=== PATIENT | female | born 1985 | race Caucasian/White ===

== ENCOUNTER 2018-12-24 08:47 | Observation (INO) | payer MEDICAID ==
[2018-12-24] VITALS (11 sets, daily range): BP systolic 102–130; BP diastolic 56–86; PULSE 85–94; RESP 16–24; Ht 162.6 cm; Wt 112.3 kg
[~2018-12-24] VITALS: Ht 162.6 cm; Wt 112.3 kg
[2018-12-24] MEDS ORDERED: POLY10DR19 RIGHT EYE (09:47)
[2018-12-24] MEDS ORDERED: PSEU60TA2 PO (11:56)
[2018-12-24] MEDS ORDERED: ACETAMINOPHEN 325 MG TAB PO PRN (12:00)
[2018-12-24] MEDS ORDERED: ONDANSETRON 4 MG INJ IV PRN ×2 (12:00→18:00)
--- NOTE | 2018-12-24 12:00 | QN ---
Documentation Comment Patient seen and worked up by Opal Ball NP. Opal spoke with Dr. Joseph the patient's OB doctor who requested the patient be admitted. I have placed the admission under Dr. Joseph to a medical surgical bed for observation. The patient will likely need D&C. LACEY CHAUDHRY MD December 24, 2018 12:00
--- NOTE | 2018-12-24 12:07 | ERD ---
ER Documentation Chief Complaint Chief Complaint vag bleed x 3 days , 11 weeks preg , lmp 10/07/18 , rt eye discharge HPI This is a 33-year-old female patient who presents the emergency room with complaint of vaginal bleeding x3 days although no bleeding today. Patient states she is currently 11 weeks with LMP October 07, 2018, estimated due date 07/13/2019. G5 A2 P2. Patient states she has had some bright red and some brown spotting. Bilateral pelvic cramping with sharp suprapubic pain. No nausea vomiting, diarrhea yesterday. Patient is alert, appropriate, NAD. OB: Dr. Damon Patient also complaining of right eye redness, pain, increased tearing. No visual disturbance. Pain travels from right eye into right ear. ROS All systems reviewed and are negative except as per history of present illness. Medications Home Meds Active Scripts Pseudoephedrine Hcl* (Pseudoephedrine Hcl*) 60 Mg Tablet, 60 MG PO Q6 PRN for CONGESTION for 5 Days, #10 TAB Prov:CARLA ESTRADA NP 12/24/18 Polymyxin B Sulfate-TMP* (Polymyxin B-TMP Eye Drops*) 10 Ml Drops, 1 DROP RIGHT EYE QID for 7 Days, EA Prov:CARLA ESTRADA CARE PARTNER 12/24/18 Allergies Allergies: Uncoded Allergies: penicillin (Allergy, Unknown, 12/24/18) PMhx/Soc Medical and Surgical Hx: pt denies Medical Hx Hx Alcohol Use: No Hx Substance Use: No Hx Tobacco Use: No FmHx Family History: No diabetes, No coronary disease, No other Physical Exam Vitals Vital Signs Date Temp Pulse Resp B/P (MAP) Pulse Ox O2 O2 Flow FiO2 Time Delivery Rate 12/24/18 98.1 76 18 115/61 98 08:50 (79) Physical Exam Const: No acute distress Head: Atraumatic Eyes: Normal Conjunctiva, PERRL, EOMI ENT: Normal External Ears, Right TM with effusion, Left TM clear, no nasal discharge, pharynx pink, moist, no lesions, no exudate, no petechiae. Neck: Full range of motion. No meningismus. No lymphadenopathy Resp: Clear to auscultation bilaterally, no wheezing, no rales Cardio: Regular rate and rhythm, no murmurs Abd: Soft, non tender, non distended. Normal bowel sounds, no hepatosplenomegaly. Tenderness to palpation at RLQ/LLQ/suprapubic region. Skin: No petechiae or rashes, warm, dry, skin color normal for ethnicity Back: No midline or flank tenderness Ext: No cyanosis, or edema Neur: Awake and alert Psych: Normal Mood and Affect Result Diagram: 12/24/18 0958 Results 24 hrs Laboratory Tests Test 12/24/18 09:58 White Blood Count 6.6 10^3/ul Red Blood Count 4.98 10^6/ul Hemoglobin 13.4 g/dl Hematocrit 41.3 % Mean Corpuscular Volume 82.9 fl Mean Corpuscular Hemoglobin 26.9 pg Mean Corpuscular Hemoglobin Concent 32.4 g/dl Red Cell Distribution Width 13.9 % Platelet Count 273 10^3/UL Mean Platelet Volume 9.0 fl Immature Granulocytes % 0.300 % Neutrophils % 56.8 % Lymphocytes % 34.1 % Monocytes % 3.5 % Eosinophils % 4.7 % Basophils % 0.6 % Nucleated Red Blood Cells % 0.0 /100WBC Immature Granulocytes # 0.020 10^3/ul Neutrophils # 3.7 10^3/ul Lymphocytes # 2.2 10^3/ul Monocytes # 0.2 10^3/ul Eosinophils # 0.3 10^3/ul Basophils # 0.0 10^3/ul Nucleated Red Blood Cells # 0.0 10^3/ul Urine Color YELLOW Urine Clarity CLOUDY Urine pH 6.0 Urine Specific [place] 1.023 Urine Ketones TRACE mg/dL Urine Nitrite NEGATIVE mg/dL Urine Bilirubin NEGATIVE mg/dL Urine Urobilinogen NEGATIVE mg/dL Urine Leukocyte Esterase NEGATIVE [place]y/ul Urine Microscopic RBC 2 /HPF Urine Microscopic WBC 3 /HPF Urine Squamous Epithelial Cells MANY /HPF Urine Bacteria FEW /HPF Urine Mucus MANY /HPF Urine Hemoglobin NEGATIVE mg/dL Urine Glucose NEGATIVE mg/dL Urine Total Protein NEGATIVE mg/dl Beta HCG, Quantitative 9337.4 mIU/ml Current Medications Medications Dose Sig/Cuco Start Time Status Last (Trade) Ordered Route PRN Stop Time Admin Dose Reason Admin Ondansetron 4 mg BRIDGE ORDER 12/24/18 HCl (Zofran PRN IV 12:00 Inj) NAUSEA/VOMITI 12/25/18 11:59 NG 650 mg ER BRIDGE 12/24/18 Acetaminophen PRN PO 12:00 (Tylenol .MILD PAIN 12/25/18 11:59 Tab) 1-3 OR TEMP Procedures/MDM This is a 33-year-old female patient who presents emergency room with complaint of vaginal bleeding at 11 weeks gestation. ED COURSE: The patient was stable throughout ED course. I kept the patient family informed of laboratory and diagnostic imaging results throughout the ED course. Patient denies any active bleeding at this time. DIAGNOSTIC IMAGING: Read by radiologist. IMPRESSION: Single intrauterine at 9 weeks and 3 days. No heart tones noted, consistent with demise. MDM: Dr. Damon notified of demise. Ordered to admit patient for suction d/c. Dr. Jin notified who will process admission. Patient notified of results and plan for d/c, patient verbalized understanding and was not visibly upset at diagnosis. Pt states, "these things happen." Patient moved to main ER for IV placement and admission. Patient requesting prescription for eye infection and ear congestions. Prescription for Polytrim and Sudafed provided. Instructed patient not to take S udafed if BP is elevated or d/c procedure is not performed. DISPOSITION: The patient has been discharge home to follow-up with community physician. Departure Diagnosis: Primary Impression: demise, less than 22 weeks CARLA ESTRADA NP December 24, 2018 12:07
--- NOTE | 2018-12-24 16:26 | PREAC ---
Date/Time of Note Date/Time of Note DATE: 12/24/18 TIME: 16:22 Anesthesia Eval and Record Evaluation Time Pre-Procedure Interview DATE: 12/24/18 TIME: 16:22 Age 33 Sex female NPO: 8 hrs Preoperative diagnosis missed Planned procedure D&C Past Medical History Past Medical History: Includes GI: Morbid obesity Surgery & Anesthesia Issues No known issue Meds Anticoagulation: No Beta Ankit within 24 hr: No Reason Beta Ankit not given: Pt. not on B-Ankit Active Scripts Pseudoephedrine Hcl* (Pseudoephedrine Hcl*) 60 Mg Tablet, 60 MG PO Q6 PRN for CONGESTION for 5 Days, #10 TAB Prov:CARLA ESTRADA INVESTIGATION MANAGER 12/24/18 Polymyxin B Sulfate-TMP* (Polymyxin B-TMP Eye Drops*) 10 Ml Drops, 1 DROP RIGHT EYE QID for 7 Days, EA Prov:CARLA ESTRADA INVESTIGATION MANAGER 12/24/18 Current Medications Ondansetron HCl (Zofran Inj) 4 mg BRIDGE ORDER PRN IV NAUSEA/VOMITING; Start 12/24/18 at 12:00; Stop 12/25/18 at 11:59 Acetaminophen (Tylenol Tab) 650 mg ER BRIDGE PRN PO .MILD PAIN 1-3 OR TEMP; Start 12/24/18 at 12:00; Stop 12/25/18 at 11:59 Meds reviewed: Yes Allergies Uncoded Allergies: penicillin (Allergy, Unknown, 12/24/18) Allergies Reviewed: Yes Labs/Studies Labs Reviewed: Reviewed by anesthesiologist Result Diagram: 12/24/18 0958 Laboratory Tests 12/24/18 09:58 Blood Bank Test 12/24/18 09:58 Blood Type B POSITIVE test: Positive Pre-procedure Exam Last vitals Vital Signs Date Temp Pulse Resp B/P (MAP) Pulse Ox O2 O2 Flow FiO2 Time Delivery Rate 12/24/18 98.1 92 16 118/58 100 Room Air 15:15 (78) Airway: Adequate mouth opening, Adequate thyromental dist Mallampati: Mallampati II Teeth: Normal Lung: Normal Heart: Normal ASA Physical Status ASA physical status: 2 Emergency: None Pre-operative Attestations Prior to commencing anesthesia and surgery, the patient was re-evaluated, there was verification of: *The patient's identity *The results of appropriate recent lab work and preoperative vital signs *The above evaluation not changing prior to induction *Anesthetic plan, risk benefits, alternative and complications discussed with pa tient/family; questions answered; patient/family understands, accepts and wishes to proceed. VIN KRISHNA DO December 24, 2018 16:26
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
[2018-12-24] MEDS ORDERED: MIDAZOLAM 1 MG/ML 2 ML INJ ONE (16:40)
[2018-12-24] MEDS ORDERED: FENTAnyl 50 MCG/ML VIAL ONE (16:40)
[2018-12-24] MEDS ORDERED: CLINDAMYCIN 900 MG/D5W (PMX) 50 ML IVPB ONE (17:00)
[2018-12-24] MEDS ORDERED: MISOPROSTOL 100 MCG TAB PR SCH (17:30)
[2018-12-24] MEDS ORDERED: MISOPROSTOL 200 MCG TAB PR SCH (17:30)
[2018-12-24] MEDS ORDERED: HYDROmorphONE 1 MG/5 ML IV SYRINGE IV ONE (17:53)
[2018-12-24] MEDS ORDERED: HYDROCODONE/APAP (5/325) TAB PO PRN (18:00)
[2018-12-24] MEDS ORDERED: HYDROmorphONE 1 MG/5 ML IV SYRINGE IV PRN ×3 (18:00)
--- NOTE | 2018-12-24 18:03 | PAC ---
Date/Time of Note Date/Time of Note DATE: 12/24/18 TIME: 18:03 Post-Anesthesia Notes Post-Anesthesia Note Last documented vital signs Vital Signs Date Temp Pulse Resp B/P (MAP) Pulse Ox O2 O2 Flow FiO2 Time Delivery Rate 12/24/18 98.1 92 16 118/58 100 Room Air 15:15 (78) Activity: WNL Respiratory function: WNL Cardiovascular function: WNL Mental status: Baseline Pain reasonably controlled: Yes Hydration appropriate: Yes Nausea/Vomiting absent: Yes VIN KRISHNA DO December 24, 2018 18:03
--- NOTE | 2018-12-24 18:06 | OPR ---
Date/Time of Note Date/Time of Note DATE: 12/24/18 TIME: 17:55 Operative Report Procedure Date: December 24, 2018 Preoperative Diagnosis 33 years old -0-2-2 with missed . Postoperative Diagnosis 33 years old -0-2-2 with missed . Operation/Procedure Performed Dilation with suction curettage Surgeon see signature line Staff Readiness Officer None Anesthesia Type: general Anesthesiologist: VIN KRISHNA DO Estimated Blood Loss: 150 - 200 ml's Transfusion none Specimen Productive of conception Grafts/Implants none Complications none Pt Condition Post Procedure: stable Disposition: PACU Procedure Description FINDINGS: Exam under anesthesia: External genitalia normal. Vagina with moderate bleeding. Cervix: No lesion, fingertip is open. Uterus: 14 weeks, mobile, anteverted. Adnexa: No palpable mass, bilateral INDICATION AND HISTORY: 33 years old -0-2-2 with missed . Treatment options including medical treatment with Cytotec and dilation with suction curettage were discussed in detail with the patient and her partner. She would like to have dilation and suction curettage. Risks including but not limited to bleeding, infection, uterine perforation, injury to other organs, bowel, bladder, ureter, vessel and nerves if uterine perforation occurs, blood transfusion, blood transfusion transfusion-related infection, scar formation, risk of anesthesia and other indicated surgery were discussed in detail with the patient. She expressed understanding. All of the questions were answered. She signed the informed consent. PROCEDURE IN DETAIL: The patient was identified and the procedure verified. She was given general anesthesia without difficulty and placed in a modified dorsal lithotomy. The patient was examined under general anesthesia as noted above. The patient was then prepped and draped in the normal sterile fashion. The bladder was drained by insertion of straight catheter. Then, a weighted speculum was used to visualize the cervix, which was grasped on anterior lip with a single tooth tenaculum. The cervix was already fingertip dilated. The cervix was dilated more to #10. Depth of uterus was 14 cm. Then a #9 suction curettage was introduced into the uterine cavity. Suction curettage was performed in a 360- degree fashion until no further tissue was obtained. There was approximately 150 mL bleeding. Then a sharp curette was gently introduced into the uterine cavity until a gritty texture was felt in all 4 quadrants. Again, the suction curettage was introduced to remove the remaining clot and debris, no further tissue was obtained. The specimen was sent to pathology. Tenaculum was removed. There was no bleeding from tenaculum site. The speculum was removed. The patient tolerated the procedure well. She was extubated in the operating room and transferred to the recovery room in stable condition. MERE MESA December 24, 2018 18:06
[2018-12-24] MEDS: IBUPROFEN 800 MG TAB PO SCH (20:55)
[2018-12-25 02:00] VITALS: BP 96/63; PULSE 75; RESP 17
[2018-12-25 08:00] VITALS: BP 106/61; PULSE 83; RESP 20
[2018-12-25] MEDS: IBUPROFEN 800 MG TAB PO SCH ×2 (09:00→13:05)
[2018-12-25] MEDS ORDERED: DEXTROSE 5%-LR 500 ML IV SCH (13:30)
[2018-12-25 14:00] VITALS: BP 110/62; PULSE 76; RESP 20
== END 2018-12-25 18:30 | disposition home or self-care (01) ==
LOC: FTE 08:47 → PP2 11:53
PROVIDERS: ADMIT Obstetrics & Gynecology; ATTEND Obstetrics & Gynecology
DX: O02.1 Missed abortion (principal)
CPT/HCPCS: 36415; 59820; 76801; 76817; 81001; 84702; 85025; 86900; 86901; 87081; 88305; J1170; J2250; J2405; J3010; J7121; Z7500; Z7502; Z7512; Z7610; G0378